=== PATIENT | female | born 1990 | race Caucasian/White ===

== ENCOUNTER 2019-01-09 15:18 | Emergency (ER) | payer OTHER ==
[2019-01-09] MEDS ORDERED: Ondansetron ODT TAB* 4 MG SL ONE (15:28)
[2019-01-09] MEDS ORDERED: NS 0.9% 1000 ML** 1,000 ML IV ONE (15:28)
[2019-01-09] MEDS ORDERED: Meclizine TAB* 12.5 MG PO ONE (15:28)
--- NOTE | 2019-01-09 15:38 | ED ---
Dizziness - HPI Summary HPI Summary: 28 year old female presenting to the ED for dizziness. Per EMS, she ate at 1230 and began feeling nauseous at 1400. Per patient, dizziness prevents her from ambulating, she must lie down. She feels no pain or ringing in her ears and her hearing is baseline. She vomited upon arrival. Patient reports diaphoresis, an inability to focus on anything and a feeling of room spinning. She is taking testosterone for transitioning. She had an November 12. Smokes marijuana and CBD occasionally. Drinks occasionally. She has a family history of vertigo. Medications reviewed. Allergies noted. - History Of Current Complaint Chief Complaint: EDDizziness Stated Complaint: VOMITINING Time Seen by Provider: 01/09/19 15:19 Hx Obtained From: Patient Onset/Duration: Still Present, Gradually Timing: Constant Severity Initially: Moderate Severity Currently: Moderate Character: Room Spinning, Dizzy Aggravating Factor(s): Nothing Alleviating Factor(s): Lying Down Associated Signs And Symptoms: Positive: Nausea, Vomiting, Diaphoresis, Unsteady Gait, Inability to Walk - Allergies/Home Medications Allergies/Adverse Reactions: Allergies Allergy/AdvReac Type Severity Reaction Status Date / Time amoxicillin Allergy Hives/Diff. Verified 01/09/19 15:29 Breathing/I tching Sulfa (Sulfonamide Allergy Hallucinati Verified 01/09/19 15:29 Antibiotics) ons PMH/Surg Hx/FS Hx/Imm Hx Psychiatric History: Reports: Other Psychiatric Issues/Disorders - Borderline Personality Disorder - Surgical History Surgical History: Yes Surgery Procedure, Year, and Place: November 12, 2018 Infectious Disease History: No Infectious Disease History: Denies: Traveled Outside the [place] in Last 30 Days - Family History Known Family History: Positive: Other - vertigo - Social History Alcohol Use: Occasionally Substance Use Type: Reports: Marijuana Smoking Status (MU): Never Smoked Tobacco Review of Systems Positive: Skin Diaphoresis Negative: Sore Throat Positive: Vomiting, Nausea Neurological: Other - inability to walk, cannot focus on anything, dizziness All Other Systems Reviewed And Are Negative: Yes Physical Exam - Summary Physical Exam Summary: Constitutional: Well-developed, Well-nourished, Alert. (-) Distressed Skin: Warm, Dry HENT: Normocephalic; Atraumatic Eyes: Conjunctiva normal. Horizontal nystagmus on rightward gaze. Neck: Musculoskeletal ROM normal neck. (-) JVD, (-) Stridor, (-) Tracheal deviation Cardio: Rhythm regular, rate normal, Heart sounds normal; Intact distal pulses. Radial pulses are 2+ and symmetric. (-) Murmur Pulmonary/Chest wall: Effort normal. (-) Respiratory distress, (-) Wheezes, (-) Rales Abd: Soft. (-) Tenderness, (-) Distension, (-) Guarding, (-) Rebound Musculoskeletal: (-) Edema Lymph: (-) Cervical adenopathy Neuro: Alert, Oriented x3, Strength normal, Cranial nerves II-XII are grossly intact. (-) Dysmetria, (-) Nystagmus, (-) Ataxia by finger to nose testing, (-) Sensory deficit. Psych: Mood and affect Normal Triage Information Reviewed: Yes Vital Signs On Initial Exam: Initial Vitals Temp Pulse Resp BP Pulse Ox 97.3 F 73 16 151/52 98 01/09/19 15:20 01/09/19 15:20 01/09/19 15:20 01/09/19 15:20 01/09/19 15:20 Vital Signs Reviewed: Yes Procedures - Sedation Patient Received Moderate/Deep Sedation with Procedure: No Diagnostics - Vital Signs Vital Signs Temp Pulse Resp BP Pulse Ox 01/09/19 15:20 97.3 F 73 16 151/52 98 - Laboratory Result Diagrams: 01/09/19 15:52 01/09/19 15:52 Lab Statement: Any lab studies that have been ordered have been reviewed, and results considered in the medical decision making process. Re-Evaluation - Re-Evaluation First Eval Re-Evaluation Time: 16:58 Change: Unchanged Comment: Patient could not stomach meclizine, did not attempt to swallow. Second Eval Re-Evaluation Time: 17:45 Change: Improved Comment: Patient is ambulating. She says that sister, brother and father all suffer from vertigo. Dizzy Course/Dx - Course Course Of Treatment: Patient is here with vertigo and nausea. Patient was overall well-appearing upon arrival with a nonfocal neurologic exam. Patient did have nystagmus on lateral gaze consistent with peripheral pathology. Patient was given Zofran and IV Ativan with improvement in her symptoms. Patient does have a family history of vertigo in her father, brother, sister with age onset of roughly his age. Patient is discharged with meclizine - Diagnoses Provider Diagnoses: Vertigo, Vomiting Discharge ED - Sign-Out/Discharge Documenting (check all that apply): Patient Departure - discharge - Discharge Plan Condition: Stable Disposition: HOME Prescriptions: Meclizine TAB* [Antivert 12.5 TAB*] 25 mg PO TID PRN #20 tab PRN Reason: Vertigo Patient Education Materials: Vertigo (ED) Forms: *Work Release Referrals: [facility] [Outside] No Primary Care Phys,NOPCP [Primary Care Provider] - Additional Instructions: Follow up with your primary care provider in 2-3 days. Return to the ED with new or worsening symptoms. - Billing Disposition and Condition Condition: STABLE Disposition: Home - Attestation Statements Document Initiated by Scribe: Yes Documenting Scribe: Sterling Hurley Provider For Whom Rebeccae is Documenting (Include Credential): Rene Ennis MD. Scribe Attestation: Sterling Johnson scribed for Rene Ennis MD. on 01/09/19 at 2125. Scribe Documentation Reviewed: Yes Provider Attestation: The documentation as recorded by the sallyibSterling barbosa accurately reflects the service I personally performed and the decisions made by , Rene Ennis MD. Status of Scribe Document: Viewed
[2019-01-09 16:09] LABS: ABS Eosinophils 0.1 10^3/ul (0-0.6); ABS Lymphocytes 0.9 10^3/ul (1.0-4.8); ABS Monocytes 0.5 10^3/ul (0-0.8); Eosinophil % 1.2 %; Hematocrit 40 % (35-47); Hemoglobin 13.4 g/dL (12.0-16.0); Lymphocyte % 8.6 %; Mean Corpuscular HGB Conc 34 g/dL (31-36); Mean Corpuscular Hemoglobin 30 pg (27-31); Mean Corpuscular Volume 89 fL (80-97); Mean Platelet Volume 8.2 fL (7.4-10.4); Platelet Count 400 10^3/uL (150-450); Red Cell Distribution Width 14 % (10-15); White Blood Count 10.4 10^3/uL (3.5-10.8)
[2019-01-09 16:22] LABS: Albumin/Globulin Ratio 1.5 (1-3); BUN/Creatinine Ratio 19.7 (8-20); Calcium 8.8 mg/dL (8.6-10.3); EGFR African American 119.5 (>60); EGFR Non-African American 98.7 (>60); Globulin 2.6 g/dL (2-4); Potassium 3.3 mmol/L (3.5-5.0); Total Bilirubin 0.3 mg/dL (0.2-1.0); Total Protein 6.6 g/dL (6.4-8.9)
[2019-01-09 16:28] LABS: HCG Pregnancy 1.63 mIU/mL
[2019-01-09] MEDS ORDERED: LORazepam INJ* 2 MG/ML 1 ML VIAL IV PUSH ONE (16:57)
[2019-01-09] MEDS ORDERED: Lorazepam PYXIS KEY PRN (16:57)
[2019-01-09] MEDS ORDERED: Lorazepam PYXIS KEY ONE (17:12)
[2019-01-09 18:29] VITALS: BP 106/62
== END 2019-01-09 18:08 | disposition home or self-care (01) ==
LOC: ED 15:18
DX: R42 Dizziness and giddiness (principal); R11.10 Vomiting, unspecified; R26.81 Unsteadiness on feet; Z88.0 Allergy status to penicillin; Z88.2 Allergy status to sulfonamides
CPT/HCPCS: 36415; 80053; 84702; 85025; 96361; 96374; 99282; A9270-GY; J2060

== ENCOUNTER 2019-01-11 05:04 | Emergency (ER) | payer OTHER ==
--- NOTE | 2019-01-11 05:47 | ED ---
Dizziness - HPI Summary HPI Summary: Pt. is a 28 y.o female who presents to the ER for dizziness x 3 days. Pt. seen in ED 2 days ago and had negative workup. Pt. states dizziness is new for her. She notes family hx of vertigo. Pt. was rx meclizine two days ago which she states is not helping. Pt. denies recent illness, ear pain, sinus congestion, sore throat. Associated sxs of nausea/vomiting. Pt. currently taking testosterone. Sxs are moderate in severity. Denies associated sxs of h/a, numbness, tingling, or weakness. Movement makes sxs worse. Lying flat makes sxs better. - History Of Current Complaint Chief Complaint: EDDizziness Stated Complaint: DIZZINESS PER PT Time Seen by Provider: 01/11/19 05:38 Hx Obtained From: Patient - Allergies/Home Medications Allergies/Adverse Reactions: Allergies Allergy/AdvReac Type Severity Reaction Status Date / Time amoxicillin Allergy Hives/Diff. Verified 01/11/19 05:07 Breathing/I tching Sulfa (Sulfonamide Allergy Hallucinati Verified 01/11/19 05:07 Antibiotics) ons Home Medications: Home Medications Mirena IUD 1 applic INTRAUTERI SEE INSTRUCTIONS 01/11/19 [History Confirmed 11/22] PMH/Surg Hx/FS Hx/Imm Hx Previously Healthy: Yes Psychiatric History: Reports: Other Psychiatric Issues/Disorders - Borderline Personality Disorder - Surgical History Surgery Procedure, Year, and Place: November 12, 2018 Infectious Disease History: No Infectious Disease History: Denies: Traveled Outside the [place] in Last 30 Days - Family History Known Family History: Positive: Other - vertigo, Non-Contributory - Social History Occupation: Unemployed Lives: With Family Alcohol Use: Occasionally Substance Use Type: Reports: Marijuana Smoking Status (MU): Never Smoked Tobacco Review of Systems Constitutional: Negative Negative: Fever, Chills Eyes: Negative ENT: Negative Negative: Ear Ache, Nasal Discharge Cardiovascular: Negative Negative: Palpitations, Chest Pain Respiratory: Negative Positive: Nausea Positive: hematuria Skin: Negative Neurological: Other - Dizziness All Other Systems Reviewed And Are Negative: Yes Physical Exam Triage Information Reviewed: Yes Vital Signs On Initial Exam: Initial Vitals Temp Pulse Resp BP Pulse Ox 98.6 F 80 15 126/72 98 01/11/19 05:06 01/11/19 05:06 01/11/19 05:06 01/11/19 05:06 01/11/19 05:06 Vital Signs Reviewed: Yes Appearance: Positive: Well-Appearing - Pt. sitting up in bed in NAD. Talkative. SO present. Skin: Positive: Warm, Dry Head/Face: Positive: Normal Head/Face Inspection Eyes: Positive: Normal, EOMI, MARY, Conjunctiva Clear ENT: Positive: Pharynx normal, TMs normal. Negative: Nasal congestion, Tonsillar swelling, Tonsillar exudate, Sinus tenderness Neck: Positive: Supple, Nontender Respiratory/Lung Sounds: Positive: Clear to Auscultation, Breath Sounds Present Cardiovascular: Positive: Normal, RRR. Negative: Murmur Musculoskeletal: Positive: Normal, Strength/ROM Intact Neurological: Positive: Normal, Alert, Oriented to Person Place, Time, CN Intact II-III, Normal Gait, Finger to Nose - normal, Facial Symmetry, Speech Normal. Negative: Pronator Drift Present Psychiatric: Positive: Affect/Mood Appropriate Procedures - Sedation Patient Received Moderate/Deep Sedation with Procedure: No Diagnostics - Vital Signs Vital Signs Temp Pulse Resp BP Pulse Ox 01/11/19 05:06 98.6 F 80 15 126/72 98 - Laboratory Lab Statement: Any lab studies that have been ordered have been reviewed, and results considered in the medical decision making process. Dizzy Course/Dx - Course Course Of Treatment: Pt. presenting with ongoing dizziness. She is afebrile with stable VS. Neuro exam normal. Pt. given a dose of valium and zofran. Pt. notes she had a recent UTI and is requesting to recheck a sample to make sure it has cleared. U/A negative for infection. Pt. notes to be ambulatory to bathroom a few times with difficulty or ataxia. On re-exam pt. is feeling much better. Advised to take rx meclizine 25mg TID. Increase fluids and rest. Change positions slowly. Pt. notes she is just visiting area of [place]. Advised to f.u with [facility] or her PCP within one week. Will return to ER if sxs change or worsen. Pt. understands and agrees with plan. - Diagnoses Differential Diagnosis/HQI/PQRI: Anxiety, Benign Paroxysmal Positional Vertigo, Labyrinthitis, Medication Reaction Provider Diagnoses: Vertigo Discharge ED - Sign-Out/Discharge Documenting (check all that apply): Patient Departure - Discharge Plan Condition: Improved Disposition: HOME Patient Education Materials: Vertigo (ED) Forms: *Work Release Referrals: [facility] [Outside] Additional Instructions: Can follow up with the [facility] Take 25mg meclizine every 8 hours Increase fluids and rest Change positions slowly Return to ER if symptoms change or worsen - Billing Disposition and Condition Condition: IMPROVED Disposition: Home
[2019-01-11] MEDS ORDERED: Ondansetron ODT TAB* 4 MG PO ONE (06:12)
[2019-01-11] MEDS ORDERED: Diazepam TAB(*) 5 MG PO ONE (06:13)
[2019-01-11 07:34] LABS: Urine Appearance Clear; Urine Bacteria Absent (Absent); Urine Bilirubin Negative (Negative); Urine Blood 1+ (Negative); Urine Color Colorless; Urine Glucose Negative (Negative); Urine Ketones Negative (Negative); Urine Nitrite Negative (Negative); Urine Protein Negative (Negative); Urine Red Blood Cell Absent (Absent); Urine Specific Gravity 1.003 (1.010-1.030); Urine Squamous Epithelial Cell Present (Absent); Urine Urobilinogen Negative (Negative); Urine White Blood Cell Trace(0-5/hpf) (Absent)
[2019-01-11 08:16] VITALS: BP 115/70
== END 2019-01-11 08:05 | disposition home or self-care (01) ==
LOC: ED 05:04
DX: R42 Dizziness and giddiness (principal); Z79.890 Hormone replacement therapy; Z88.0 Allergy status to penicillin; Z88.2 Allergy status to sulfonamides
CPT/HCPCS: 81003; 81015; 87086; 99283; A9270-GY